=== PATIENT | female | born 1965 | race Caucasian/White ===

== ENCOUNTER 2017-03-17 15:08 | Emergency (ER) | payer OTHER ==
[~2017-03-17] VITALS: Ht 167.6 cm; Wt 63.5 kg
--- NOTE | 2017-03-17 15:08 | NUR ---
L ARM PAIN S/P TRIP AND FALL AT MALL. NAD NOTED. PT AAO X4, VSS. PENDING WOLF. Addendum: 03/17/17 at 1607 by RBATACLAN MD BLOOM*
[2017-03-17] MEDS ORDERED: IBUPROFEN 200 MG TABLET ONE (15:29)
[2017-03-17] MEDS ORDERED: IBUPROFEN 600 MG TABLET PO ONE (15:30)
[2017-03-17 16:48] VITALS: BP 111/67
== END 2017-03-17 16:53 | disposition home or self-care (01) ==
LOC: ER 15:10
DX: S42.255A Nondisplaced fracture of greater tuberosity of left humerus, initial encounter for closed fracture (principal); S42.002A Fracture of unspecified part of left clavicle, initial encounter for closed fracture; W01.0XXA Fall on same level from slipping, tripping and stumbling without subsequent striking against object, initial encounter; Y92.89 Other specified places as the place of occurrence of the external cause; Y93.89 Activity, other specified; Y99.8 Other external cause status
CPT/HCPCS: 73000-TC; 73030-TC; A4606; Z7610

== ENCOUNTER 2019-06-06 07:48 | Outpatient (CLI) | payer BC | END 2019-06-06 23:59 | disposition home or self-care (01) | LOC: CARD 07:48 | DX: I08.0 Rheumatic disorders of both mitral and aortic valves (principal); K57.30 Diverticulosis of large intestine without perforation or abscess without bleeding; J98.11 Atelectasis; K82.8 Other specified diseases of gallbladder; R16.2 Hepatomegaly with splenomegaly, not elsewhere classified; I70.8 Atherosclerosis of other arteries | CPT/HCPCS: 74150-TC; 93307-TC ==

== ENCOUNTER 2019-09-15 04:56 | Emergency (ER) | payer BC ==
[~2019-09-15] VITALS: Ht 167.6 cm; Wt 60.3 kg
[2019-09-15 05:03] VITALS: BP 133/67
[2019-09-15] MEDS ORDERED: diphenhydrAMINE HCL 50 MG/ML VIAL ONE (05:05)
--- NOTE | 2019-09-15 05:26 | NUR ---
PT REFUSING TO STAY. VERBALIZING "IM FEELING OK. I NEED TO LEAVE" Patient does not wish to proceed with medical care recommended by Dr. AMAYA. Patient given information related to possible complications, up to and including , which could occur as a result of leaving the hospital at this time. Patient verbalizes understanding of risks involved due to leaving against medical advice. Patient has signed AMA form.
[2019-09-15] MEDS ORDERED: diphenhydrAMINE HCL 50 MG/ML VIAL IM ONE (05:30)
== END 2019-09-15 05:58 | disposition home or self-care (01) ==
LOC: ER 05:00
DX: L29.9 Pruritus, unspecified (principal); F10.10 Alcohol abuse, uncomplicated; Y90.9 Presence of alcohol in blood, level not specified; Z90.89 Acquired absence of other organs; Z98.890 Other specified postprocedural states
CPT/HCPCS: 96372; 99283; J1200

== ENCOUNTER 2019-09-19 19:08 | Emergency (ER) | payer BC ==
[~2019-09-19] VITALS: Ht 167.6 cm; Wt 63.5 kg
--- NOTE | 2019-09-19 20:48 | NUR ---
BIBSELF WITH PARTNER. TO ER BED 11. AAOX4. NO RESP DISTRESS NOTED. AMBULATORY. C/O GEN ABDOMINAL PAIN S/P PARACENTESIS. PT REPORTS THAT SHE WAS HAVING A PARACENTESIS EARLIER @ 2PM D/T ACSITES. PER PT, DURING THE PROCEDURE THE PAIN STARTED THAT SHE HAVE TO HAVE THE PROCEDURE STOPPED. ACCORDING TO HER PARACENTESIS WAS NO COMPLETED. ABDOMEN NOTED DISTENTED. AWAITING MD FOR EVAL.
[2019-09-19] MEDS ORDERED: KETOROLAC TROMETHAMINE INJ 30 MG/ML VIAL ONE (21:19)
[2019-09-19] MEDS ORDERED: KETOROLAC TROMETHAMINE INJ 60 MG/2 ML VIAL IM ONE (21:30)
--- NOTE | 2019-09-19 21:38 | NUR ---
Flavio estrada in [facility] - 09/19/19 at 2138 by MANNY DC
--- NOTE | 2019-09-19 21:38 | NUR ---
PT LEFT WITHOUT RECEIVING AND SIGN WRITTEN AFTER CARE. VERBAL ACI WAS GIVEN WHILE BEING GIVEN MEDICATION EARLIER WELL VERBAL ACI BY PA
--- NOTE | 2019-09-19 21:38 | NUR ---
Patient discharged to home in stable condition. Written and verbal after care instructions given. Patient verbalizes understanding of instruction. Pt ambulatory with a steady gait
[2019-09-19 21:40] VITALS: BP 116/51
== END 2019-09-19 21:40 | disposition home or self-care (01) ==
LOC: ER 19:10
DX: F41.9 Anxiety disorder, unspecified (principal); R10.31 Right lower quadrant pain; K74.60 Unspecified cirrhosis of liver; F10.10 Alcohol abuse, uncomplicated; Y90.9 Presence of alcohol in blood, level not specified; Z90.89 Acquired absence of other organs; Z98.890 Other specified postprocedural states
CPT/HCPCS: 96372; 99284; J1885